=== PATIENT | male | born 1950 | race Caucasian/White ===

== ENCOUNTER 2016-08-19 16:34 | Inpatient (IN) | payer MEDICARE, OTHER ==
[2016-08-19 18:47] VITALS: BMI 19.4
[2016-08-19] MEDS ORDERED: PROVENTIL INHALER 6.7 G (200 INHALATIONS) INH PRN (20:31)
[2016-08-19] MEDS: Acetaminophen 325 MG TAB PO PRN (21:46)
[2016-08-19] MEDS: Pravastatin Sodium 20 MG TAB PO SCH (21:46)
[2016-08-19] MEDS: Carvedilol 6.25 MG TAB PO SCH (21:47)
--- NOTE | 2016-08-19 23:33 | RAD ---
PORTABLE SEMI UPRIGHT FRONTAL CHEST RADIOGRAPH 08/19/2016 COMPARISON: 08/11/2016 HISTORY: Pleural effusion. FINDINGS: As seen on prior imaging, there is perihilar interstitial prominence, left greater than right. Ther e is also prominent bibasilar increased density, left greater than right, suggesting a combination o f airspace disease and pleural fluid. No pneumothorax. IMPRESSION: Prominent bibasilar interstitial and alveolar opacity, left greater than right, not significantly ch anged. Findings may be related to pulmonary edema and/or infectious pneumonitis/aspiration. Contin ued follow-up to full resolution advised. POS: [facility]
[2016-08-20 05:51] LABS: Anion Gap 11 mmol/L (10-20); BUN (Urea Nitrogen) 19 mg/dL (8.4-25.7); Calc. Creatinine Clearance 64 mL/min (70-130); Calcium 9.1 mg/dL (7.8-10.44); Carbon Dioxide 26 mmol/L (23-31); Chloride 104 mmol/L (98-107); Estimated GFR-MDRD 83
[2016-08-20 05:57] LABS: #Lymphocytes 1.1 thou/uL (1.20-3.40); #Monocytes 0.3 thou/uL (0.11-0.59); #Neutrophils 3.9 thou/uL (1.40-6.50); %Basophils 0.5 % (0.0-1.0); %Eosinophils 0.3 % (0.0-10.0); %Lymphocytes 19.6 % (21.0-51.0); Hematocrit 32.1 % (42.0-52.0); Red Blood Cell (RBC) Count 3.37 mill/uL (4.70-6.10); White Blood Cell (WBC) Count 5.3 thou/uL (4.8-10.8)
[2016-08-20] MEDS: Furosemide 20 MG TAB PO SCH (08:26)
[2016-08-20] MEDS: Aspirin 81 mg Enteric Coated Tablet PO SCH (08:26)
[2016-08-20] MEDS: Carvedilol 6.25 MG TAB PO SCH ×2 (08:26→20:40)
[2016-08-20] MEDS ORDERED: predniSONE 10 MG TAB PO SCH (11:30)
[2016-08-20] MEDS ORDERED: PROVENTIL INHALER 6.7 G (200 INHALATIONS) INH PRN (11:34)
[2016-08-20] MEDS: Pravastatin Sodium 20 MG TAB PO SCH (20:39)
[2016-08-20] MEDS: Acetaminophen 325 MG TAB PO PRN (20:40)
--- NOTE | 2016-08-21 07:34 | HP ---
DATE OF ADMISSION: 08/19/2016 HISTORY OF PRESENT ILLNESS: The patient is an unfortunate 66-year-old white male with a long histor y of hypertension, coronary disease, status post angioplasty, atrial fibrillation, and nicotine abus e with smoking until 5 years ago who presented to [facility] on 08/01/2016 wi th abdominal pain and was found to have a large left pleural effusion with a left upper lobe infiltr ate, worrisome for parapneumonic effusion from pneumonia or malignancy, effusion was drained with in itially no diagnosis. Brushings were done because of acute respiratory failure requiring intubation , but again no diagnosis, but finally adenocarcinoma of the lung with diagnosed on pleural fluid. H e will require chest tube placement because of persistent pleural effusion with improvement in the r espiratory status, ability to be extubated. His atrial fibrillation resolved with improvement in hi s respiratory status. He was continued on his beta jean-paul. He was not anticoagulated because of h emoptysis initially with the intubation, then had the acute onset of shortness of breath recur, foun d to have a pulmonary embolus and was started on Lovenox, but continued to have bleeding around the chest tube; and therefore, an inferior vena cava filter was placed and anticoagulation was discontin ued. The patient slowly, but surely improved, continued to have significant drainage but then final ly this decreased, his tube was discontinued. It was felt that if the pleural effusion recurred and he became symptomatic would require a PleurX but at this time was only requiring low-flow oxygen an d was ambulating 1200 feet in the [facility] and was felt to be stable to be transferred to the SNF unit f or continued physical therapy. He has discussed chemotherapy with oncologist who feels that he need s further evaluation with biopsy prior to therapy and further condition and improvement prior to ini tiation of therapy. Therefore, he will be continued on physical therapy until he is able to be disc harged home with followup with Oncology as an outpatient. If he has recurrent shortness of breath, plan is to transfer him back to [place] for placement of a PleurX. PAST MEDICAL HISTORY: As mentioned above is remarkable for coronary disease, status post distant an gioplasty with no chest pain, chronic atrial fibrillation on no anticoagulation except aspirin and t he above-mentioned nicotine abuse. SOCIAL HISTORY: He lives with his elderly mother. He is retired. [employer] employee. He sm oked heavily until 5 years ago. He drinks two bottles of beer daily. ALLERGIES: He has no known allergies. MEDICATIONS: As mentioned above include carvedilol 6.25 twice daily, furosemide 20 daily, pravastat in 80 daily, aspirin 81 daily. These were his prehospitalization medications. He has also been sta rted on prednisone 10 mg daily and had been continued this on discharge. REVIEW OF SYSTEMS: HEENT: He denies any headaches or dizziness, change in vision or hearing, hoars eness or dysphagia. Pulmonary: See history of present illness. He has no previous history of pneu monia, hemoptysis, pulmonary embolus. Cardiovascular: See history of present illness. He had had asymptomatic atrial fibrillation with coronary disease and had no orthopnea, paroxysmal nocturnal dy spnea prior to this admission. Gastrointestinal: He denies nausea, vomiting, diarrhea, constipatio n, abdominal pain. He did have some rectal bleeding after initiation of Lovenox. He has not had a colonoscopy or gastroscopy. Genitourinary: Denies dysuria, hematuria, nocturia. Musculoskeletal: Denies stiffness, swelling in joints or extremities. PHYSICAL EXAMINATION: GENERAL: Patient is an elderly white male, walking around the room on low-flow oxygen who feels wel l with no complaints. VITAL SIGNS: Temperature is 97, pulse 92, O2 sats 92% on 2 liters, blood pressure 117/62. HEENT: Pupils are equal, round, and react to light and accommodation. Sclerae are anicteric. Conj unctivae pale. Oral mucous membranes well hydrated. NECK: Supple, no nodes or masses. JVP is not elevated. LUNGS: Show decreased breath sounds at the left base with the rhonchi above this. CARDIAC: Displays regular rhythm. No gallops or murmurs. ABDOMEN: Soft and nontender. No masses or organomegaly. SKIN/EXTREMITIES: Showed no edema, clubbing, cyanosis. NEUROLOGIC: Grossly intact. LABORATORY AND X-RAY FINDINGS: Most recent laboratories show white count of 8900, hematocrit 33, he moglobin 11 one week ago. Sodium 137, potassium 3.8, chloride 106, bicarbonate 26, BUN 18, creatini ne 1.08 six days ago. Most recent chest x-ray 8 days ago showed the perihilar interstitial prominen ce, left greater than right, with bibasilar increased density, left greater than right, consistent w ith recurrent effusion but with no change from 1 week previously. ASSESSMENT: 1. Adenocarcinoma of the lung, status post with symptoms of shortness of breath with drainage of the fluid but with no significant therapy and awaiting an improved condition and cardiac evaluat ion for chemotherapy and monitoring of recurrence of fluid and need for PleurX. 2. Recent pulmonary embolus status post inferior vena cava on no anticoagulation secondary to bleed ing with stable mild hypoxemia on 2 liters of O2. 3. Atrial fibrillation, resolved at this time, possibly an exacerbation secondary to hypoxemia. 4. Coronary disease, asymptomatic, status post distant angioplasty. PLAN: PT, OT consult. Continue 2 liters of O2 and hopefully wean off, repeat chest x-ray and monit or pleural effusion, need for return for PleurX, continue Coreg and low dose aspirin. Continue prav astatin, continue prednisone and complete wean off in the next several days.
[2016-08-21] MEDS: predniSONE 10 MG TAB PO SCH (08:17)
[2016-08-21] MEDS: Aspirin 81 mg Enteric Coated Tablet PO SCH (08:17)
[2016-08-21] MEDS: Furosemide 20 MG TAB PO SCH (08:18)
[2016-08-21] MEDS: Carvedilol 6.25 MG TAB PO SCH ×2 (08:18→20:16)
--- NOTE | 2016-08-21 10:31 | PRG ---
DATE OF SERVICE: 08/21/2016 SUBJECTIVE: The patient feels well today with no shortness of breath, chest pain. He has been walk ing in the [facility]. He has had increasing appetite and states that he has been eating well, feeling st ronger. OBJECTIVE: O2 sats to 90% on 2 liters, blood pressure 120/76, respirations 18, temperature 97.6, pu lse 80. Laboratories yesterday showed a white count 5300, hematocrit 32, hemoglobin 10, sodium 137, potassium 3.7, chloride 104, bicarb 26, BUN 19, creatinine 0.91. Lungs today showed decreased ra th sounds in the bases, worse on the left side with a few rhonchi above this. No wheezes or rales. Cardiac examination shows regular rhythm. Skin and extremities display no edema. The patient is e ating 75-100% of meals. Weight yesterday was 124 pounds. The patient stated he weighed 120 pounds at [facility]. ASSESSMENT: 1. Improving deconditioning. 2. Improving weight and nutrition. 3. Persistent stage 4 cancer of the lung with malignant effusion. 4. Persistent hypoxemia. PLAN: Repeat chest x-ray in the morning. Continue physical therapy. Continue nutritional support. Discuss home O2 with the patient and outpatient chemotherapy.
--- NOTE | 2016-08-21 13:15 | CT ---
CT OF THE BRAIN WITHOUT CONTRAST: COMPARISON: 06/01/13. HISTORY: Sudden onset of left arm weakness and numbness. History of stage IV lung cancer. TECHNIQUE: Multiple contiguous axial images were obtained in a CT of the brain without contrast. FINDINGS: There are scattered hypodensities in the subcortical and periventricular white matter, likely second anjana to small-vessel ischemic disease. There is a stable area of encephalomalacia in the right parie tooccipital region. No new large confluent infarction is seen. There is no evidence of hydrocephal us, intracranial hemorrhage, or extraaxial fluid collection. The calvarium and overlying soft tissues are unremarkable. The visualized paranasal sinuses and mas toid air cells are well aerated. IMPRESSION: No evidence of acute intracranial abnormality. POS: [facility]
--- NOTE | 2016-08-21 13:26 | RAD ---
SINGLE VIEW OF THE CHEST: COMPARISON: 08/19/16. HISTORY: Left arm weakness and numbness. FINDINGS: A single view of the chest shows a normal-size cardiomediastinal silhouette. There appears to be a small right pleural effusion. There may also be a small left pleural effusion. Left basilar atelec tasis is present. IMPRESSION: 1. Bilateral pleural effusions. 2. Left basilar atelectasis. POS: [facility]
[2016-08-21] MEDS: Pravastatin Sodium 20 MG TAB PO SCH (20:15)
[2016-08-21] MEDS: Acetaminophen 325 MG TAB PO PRN (20:16)
--- NOTE | 2016-08-22 08:16 | PRG ---
DATE OF SERVICE: 08/22/2016 SUBJECTIVE: The patient lying in bed with no complaints at this time, but has significant episode o f hypoxia with confusion and transient left-sided weakness while doing therapy yesterday. Denies an y fever, chills, cough, chest pain, feels well at rest at this time, still in denial about the sever ity of his illness and states that he wants to get better and go home. He is eating well. OBJECTIVE: Blood pressure is 167/81, O2 sat 86% on 3 liters, respirations 24, pulse 88, temperature 96.4. Lungs show decreased breath sounds in the bases, but with no rales, rhonchi, rubs or wheezes . Cardiac examination shows regular rhythm. Skin and extremities show no edema. Chest x-ray yesterday showed no change with only minimal effusions, no infiltrate. CT scan of the b rain was normal. Neurological exam normalized within a few minutes of rest and increase in his O2 s aturations from 70%, which it was when he was ambulating up to 88% at rest. Discussed situation with his sister, power of admitted attorneys. She understands the terminal nature of his illness and the possibility that he may not be able to tolerate chemotherapy and discussed hospice a nd we will reevaluate in 2 days, if no change. ASSESSMENT: 1. Class IV nonsmall cell cancer of the lung, possibly adenocarcinoma with left malignant effusion with no recurrence. 2. Recent pulmonary embolus with severe hypoxemia, status post IVC with no anticoagulation secondar y to recurrent bleeding with anticoagulation with possible contribution to his hypoxemia on exertion . 3. Long history of nicotine abuse and chronic obstructive pulmonary disease. 4. Weight loss and deconditioning, slightly improving. PLAN: Continue to stress oral intake, gentle ambulation while monitoring sats closely and not allow ing sats to go below 80% with exercise and 88% at rest. Discuss hospice again with the patient and family in 2 days.
[2016-08-22] MEDS: predniSONE 10 MG TAB PO SCH (08:19)
[2016-08-22] MEDS: Aspirin 81 mg Enteric Coated Tablet PO SCH (08:19)
[2016-08-22] MEDS: Furosemide 20 MG TAB PO SCH (08:20)
[2016-08-22] MEDS: Carvedilol 6.25 MG TAB PO SCH ×2 (08:20→20:02)
[2016-08-22] MEDS: Pravastatin Sodium 20 MG TAB PO SCH (20:02)
[2016-08-22] MEDS: Acetaminophen 325 MG TAB PO PRN (20:02)
[2016-08-23] MEDS: Aspirin 81 mg Enteric Coated Tablet PO SCH (08:56)
[2016-08-23] MEDS: predniSONE 10 MG TAB PO SCH (08:56)
[2016-08-23] MEDS: Furosemide 20 MG TAB PO SCH (08:56)
[2016-08-23] MEDS: Carvedilol 6.25 MG TAB PO SCH ×2 (08:56→20:19)
[2016-08-23] MEDS: Acetaminophen 325 MG TAB PO PRN (20:18)
[2016-08-23] MEDS: Pravastatin Sodium 20 MG TAB PO SCH (20:19)
[2016-08-24 08:39] VITALS: TEMP 95.7
[2016-08-24] MEDS: Furosemide 20 MG TAB PO SCH (08:44)
[2016-08-24] MEDS: predniSONE 10 MG TAB PO SCH (08:44)
[2016-08-24] MEDS: Aspirin 81 mg Enteric Coated Tablet PO SCH (08:44)
[2016-08-24 08:45] VITALS: BP 117/69
[2016-08-24] MEDS: Carvedilol 6.25 MG TAB PO SCH (08:45)
--- NOTE | 2016-08-24 11:10 | RAD ---
PA AND LATERAL CHEST: Date: 08-24-16 History: Left pleural effusion. FINDINGS: Compared to study 08-24-16. Cardiac silhouette and pulmonary vasculature are within normal limits. There is blunting of the karina ateral costophrenic angles likely related to bilateral pleural effusions and associated atelectasis although pleural and parenchymal scarring is a possibility. Increased interstitial opacity is again seen in the left hilar region which is unchanged when compared to the prior exam. The more conflue nt left perihilar opacity on study of 08-10-16 has certainly improved. Chest is stable when compare d to study on 08-21-16. Cardiac silhouette and pulmonary vasculature are within normal limits. No other interval change. IMPRESSION: 1. Overall stable chest with bilateral pleural effusions and atelectasis, greater on the right. 2. Stable interstitial prominence left perihilar region. POS: [facility]
== END 2016-08-24 15:10 | DRG 181 ==
LOC: NAV ACUTE 18:02 → UNDOADMIN 18:02
PROVIDERS: ADMIT Internal Medicine; ATTEND Internal Medicine
DX: C34.90 Malignant neoplasm of unspecified part of unspecified bronchus or lung (principal); J91.0 Malignant pleural effusion; I48.2 Chronic atrial fibrillation; Z68.1 Body mass index [BMI] 19.9 or less, adult; R09.02 Hypoxemia; I10 Essential (primary) hypertension; I25.10 Atherosclerotic heart disease of native coronary artery without angina pectoris; Z98.61 Coronary angioplasty status; Z86.711 Personal history of pulmonary embolism; Z87.891 Personal history of nicotine dependence; J44.9 Chronic obstructive pulmonary disease, unspecified; R63.4 Abnormal weight loss
CPT/HCPCS: 70450; 71010; 71020; 80048; 85025; G8978-GP-CI; G8979-GP-CH; J7512